=== PATIENT | male | born 1975 | race Two or more races ===

== ENCOUNTER 2022-11-26 08:25 | Day surgery (SDC) | payer OTHER | END 2022-11-26 14:45 | disposition home or self-care (01) | LOC: AMB-ENDOS 08:25 | PROVIDERS: ATTEND Colon & Rectal Surgery | DX: D12.4 Benign neoplasm of descending colon (principal); K57.32 Diverticulitis of large intestine without perforation or abscess without bleeding; K57.30 Diverticulosis of large intestine without perforation or abscess without bleeding; K64.8 Other hemorrhoids ==

== ENCOUNTER 2023-11-24 17:17 | Emergency (ER) | payer OTHER ==
[~2023-11-24] VITALS: Ht 172.7 cm; Wt 71.7 kg
[2023-11-24] MEDS ORDERED: GUAIFENESIN/DEXTROMETHORPHAN 10ML BLIST.PACK PO ONE (18:30)
[2023-11-24] MEDS ORDERED: CETIRIZINE HCL 5 MG/5 ML ML PO ONE (18:30)
[2023-11-24] MEDS ORDERED: ACETAMINOPHEN 500 MG GEL..CAP PO ONE (18:30)
[2023-11-24 19:04] LABS: HEMATOCRIT 41.5 % (39.0-48.0); MEAN CELL VOLUME 87.9 fL (80.0-100.00); MEAN CORPUSCULAR HEMOGLOBIN 29.6 pg (27.00-32.0); MEAN CORPUSCULAR HGB CONC 33.7 g/dl (32.0-36.0); PLATELET COUNT 138 K/uL (150-450); RED BLOOD COUNT 4.72 M/uL (4.00-6.00); RED CELL DISTRIBUTION WIDTH 14.6 % (11.5-14.5)
[2023-11-24] MEDS ORDERED: TUSSIN DM LIQU118 ML PO (20:18)
[2023-11-24] MEDS ORDERED: ZYRTEC10 MG PO (20:18)
== END 2023-11-24 21:06 ==
LOC: ER 17:18
PROVIDERS: Nurse Practitioner Family
DX: U07.1 COVID-19 (principal)